=== PATIENT | female | born 1995 | race American Indian/Alaskan Native ===

== ENCOUNTER 2017-05-19 23:27 | Emergency (ER) | payer BC ==
[2017-05-19 23:46] VITALS: BP 117/75; PULSE 62; RESP 18; TEMP 98.7; O2SAT 99
[2017-05-20] MEDS ORDERED: Tmp-Smz 800 mg-160 mg DS Tab PO STA (00:20)
--- NOTE | 2017-05-20 00:24 | ED PDOC ---
HPI: Skin/Bite Injury Time Seen by Provider: 05/19/17 23:37 Chief Complaint (Nursing): Abnormal Skin Integrity Chief Complaint (Provider): Abscess History Per: Patient Additional Complaint(s): Patient is a 21 yo female, no PMH, presents to ED with complaints of red blister "bite" like leopoldo on left quad. No fever or chills. Pt has been applying A&D without relief. Past Medical History Reviewed: Nursing Documentation, Vital Signs Vital Signs: Last Vital Signs Temp 98.7 F 05/19/17 23:44 Pulse 62 05/19/17 23:44 Resp 18 05/19/17 23:44 BP 117/75 05/19/17 23:44 Pulse Ox 99 05/20/17 00:24 - Medical History PMH: Asthma (as a child) - Surgical History Surgical History: No Surg Hx - Family History Family History: States: Unknown Family Hx - Living Arrangements Living Arrangements: With Family - Social History Current smoker - smoking cessation education provided: No Alcohol: Social Drugs: Denies - Immunization History Hx Tetanus Toxoid Vaccination: No Hx Influenza Vaccination: No Hx Pneumococcal Vaccination: No - Home Medications Home Medications: Ambulatory Orders Medication Instructions Recorded Amoxicillin 875 mg PO BID #20 tab 02/05/15 Magic Mouth Wash 02/05/15 Clindamycin [Cleocin] 300 mg PO TID #21 cap 04/30/15 Cephalexin [Keflex] 500 mg PO BID #14 cap 12/17/15 Fluconazole [Diflucan] 150 mg PO ONCE #1 tab 12/17/15 Cephalexin [cephalexin] 500 mg PO BID #14 cap 05/20/17 Mupirocin 2% Cream [Bactroban 30 applic TOP BID #1 tube 05/20/17 Cream] Sulfamethoxazole/Trimethoprim 1 tab PO BID 5 Days tab 05/20/17 [Bactrim DS 800 mg-160 mg] - Allergies Allergies/Adverse Reactions: Allergies Allergy/AdvReac Type Severity Reaction Status Date / Time shellfish derived Allergy RASH Verified 10/10/16 00:57 Review of Systems ROS Statement: Except As Marked, All Systems Reviewed And Found Negative Skin: Positive for: Rash Physical Exam - Reviewed Nursing Documentation Reviewed: Yes Vital Signs Reviewed: Yes - Physical Exam Appears: Positive for: Well, Non-toxic, No Acute Distress Head Exam: Positive for: ATRAUMATIC, NORMAL INSPECTION, NORMOCEPHALIC Skin: Positive for: Normal Color, Warm, DRY Eye Exam: Positive for: EOMI, Normal appearance, PERRL ENT: Positive for: Normal ENT Inspection Neck: Positive for: Normal, Painless ROM Cardiovascular/Chest: Positive for: Regular Rate, Rhythm Respiratory: Positive for: CNT, Normal Breath Sounds Gastrointestinal/Abdominal: Positive for: Normal Exam, Bowel Sounds, Soft Back: Positive for: Normal Inspection Extremity: Positive for: Normal ROM, Other (left posterior thigh: 3 cm area or erythema with centralized pustules. site tender. non fluctuant, non indurated) Neurologic/Psych: Positive for: Alert, Oriented - ECG O2 Sat by Pulse Oximetry: 99 Medical Decision Making Medical Decision Making: Started on bactrim and Keflex while in Ed Advised warm compresses and to continue on medications as directed Disposition - Clinical Impression Clinical Impression: Cellulitis - Patient ED Disposition Is Patient to be Admitted: No - Disposition Disposition: Routine/Home Disposition Time: 01:11 Condition: STABLE Prescriptions: Cephalexin [cephalexin] 500 mg PO BID #14 cap Mupirocin 2% Cream [Bactroban Cream] 30 applic TOP BID #1 tube Sulfamethoxazole/Trimethoprim [Bactrim DS 800 mg-160 mg] 1 tab PO BID 5 Days tab Instructions: Cellulitis (ED) Forms: [id number] (Portuguese)
[2017-05-20] MEDS ORDERED: Tmp-Smz 800 mg-160 mg DS Tab ONE (00:45)
== END 2017-05-20 01:05 | disposition home or self-care (01) ==
LOC: H.ER 23:27
DX: L03.116 Cellulitis of left lower limb (principal); L02.211 Cutaneous abscess of abdominal wall; Z91.013 Allergy to seafood; J45.909 Unspecified asthma, uncomplicated

== ENCOUNTER 2017-11-16 07:46 | Emergency (ER) | payer BC ==
[2017-11-16] MEDS ORDERED: Sodium Chloride 0.9% 1,000 ML IV STA (07:53)
--- NOTE | 2017-11-16 07:58 | ED PDOC ---
HPI: SOB/CHF/COPD Time Seen by Provider: 11/16/17 07:49 Chief Complaint (Provider): Shortness of breath History Per: Patient History/Exam Limitations: no limitations Onset/Duration Of Symptoms: Hrs (this morning) Current Symptoms Are (Timing): Still Present Associated Symptoms: Other (vomiting, anxiety). denies: Chest Pain, Productive Cough Additional Complaint(s): Ramón Mukherjee is a 22 year old female, with no significant past medical history , who was brought to the emergency department via EMS complaining of shortness of breath onset since this morning. Patient admits to ETOH consumption last night associated with vomiting this morning. Patient reports she feels anxious but denies any fever, chills, cough or chest pain. No further medical complaints. PMD: None provided. Past Medical History Reviewed: Historical Data, Nursing Documentation, Vital Signs Vital Signs: Last Vital Signs Temp 97 F L 11/16/17 07:59 Pulse 78 11/16/17 07:59 Resp BP 121/70 11/16/17 07:59 Pulse Ox 100 11/16/17 07:59 - Medical History PMH: Asthma (as a child) - Surgical History Surgical History: No Surg Hx - Family History Family History: States: Unknown Family Hx - Immunization History Hx Tetanus Toxoid Vaccination: No Hx Influenza Vaccination: No Hx Pneumococcal Vaccination: No - Home Medications Home Medications: Ambulatory Orders Medication Instructions Recorded Amoxicillin 875 mg PO BID #20 tab 02/05/15 Magic Mouth Wash 02/05/15 Clindamycin [Cleocin] 300 mg PO TID #21 cap 04/30/15 Cephalexin [Keflex] 500 mg PO BID #14 cap 12/17/15 Fluconazole [Diflucan] 150 mg PO ONCE #1 tab 12/17/15 Cephalexin [cephalexin] 500 mg PO BID #14 cap 05/20/17 Mupirocin 2% Cream [Bactroban 30 applic TOP BID #1 tube 05/20/17 Cream] Sulfamethoxazole/Trimethoprim 1 tab PO BID 5 Days tab 05/20/17 [Bactrim DS 800 mg-160 mg] - Allergies Allergies/Adverse Reactions: Allergies Allergy/AdvReac Type Severity Reaction Status Date / Time shellfish derived Allergy RASH Verified 11/16/17 07:57 Review of Systems ROS Statement: Except As Marked, All Systems Reviewed And Found Negative Constitutional: Negative for: Fever, Chills Cardiovascular: Negative for: Chest Pain Respiratory: Positive for: Shortness of Breath. Negative for: Cough Gastrointestinal: Positive for: Vomiting Psych: Positive for: Anxiety Physical Exam - Reviewed Nursing Documentation Reviewed: Yes Vital Signs Reviewed: Yes - Physical Exam Appears: Positive for: Well, Non-toxic, No Acute Distress Head Exam: Positive for: ATRAUMATIC, NORMAL INSPECTION, NORMOCEPHALIC Skin: Positive for: Normal Color, Warm, Dry Eye Exam: Positive for: Normal appearance, EOMI, PERRL Neck: Positive for: Painless ROM Cardiovascular/Chest: Positive for: Regular Rate, Rhythm. Negative for: Murmur Respiratory: Positive for: Normal Breath Sounds. Negative for: Respiratory Distress Gastrointestinal/Abdominal: Positive for: Normal Exam, Soft. Negative for: Tenderness Extremity: Positive for: Normal ROM (full on all extremities). Negative for: Tenderness, Deformity, Swelling Neurologic/Psych: Positive for: Alert, Oriented. Negative for: Motor/Sensory Deficits - Laboratory Results Result Diagrams: 11/16/17 08:15 11/16/17 08:15 Medical Decision Making Medical Decision Making: Initial Plan: --Alcohol serum --CMP --CBC w/ differential --Sodium Chloride 1,000 ml IV 100 mls/hr --Zofran ODT 4 mg PO --Reevaluation Scribe Attestation: Documented by Cruz Singh, acting as a scribe for Crow Avalos MD Provider Scribe Attestation: All medical record entries made by the Scribe were at my direction and personally dictated by me. I have reviewed the chart and agree that the record accurately reflects my personal performance of the history, physical exam, medical decision making, and the department course for this patient. I have also personally directed, reviewed, and agree with the discharge instructions and disposition. Disposition - Clinical Impression Clinical Impression: Anxiety - Patient ED Disposition Is Patient to be Admitted: No Counseled Patient/Family Regarding: Studies Performed, Diagnosis, Need For Followup - Disposition Referrals: [facility] [Outside] Disposition: Routine/Home Disposition Time: 10:45 Condition: FAIR Instructions: Anxiety, Adult (DC)
[2017-11-16 07:59] VITALS: TEMP 97; O2SAT 100
[2017-11-16 08:35] LABS: BASO % 0.6 % (0.0-2.0); EOS % 1.4 % (0.0-4.0); HEMOGLOBIN 12.4 g/dL (12.0-16.0); LYMPH # 1.4 K/uL (1.0-4.3); LYMPH % 40.9 % (20.0-40.0); MEAN CELL VOLUME 95.3 fl (81.0-99.0); MEAN CORPUSCULAR HEMOGLOBIN 33.4 pg (27.0-31.0); MEAN PLATELET VOLUME 8.9 fl (7.2-11.7); MONO # 0.4 K/uL (0.0-0.8); MONO % 11.7 % (0.0-10.0); NEUT # 1.6 K/uL (1.8-7.0); NEUT % 45.4 % (50.0-75.0); NRBC % 0.2 % (0.0-0.0); RBC 3.71 Mil/uL (3.80-5.20); RED CELL DISTRIBUTION WIDTH 12.7 % (11.5-14.5); WHITE BLOOD COUNT 3.5 K/uL (4.8-10.8)
[2017-11-16 09:01] LABS: ALB/GLOB RATIO 1.1 (1.0-2.1); ALBUMIN 3.8 g/dL (3.5-5.0); ALT/SGPT 32 U/L (9-52); AST/SGOT 18 U/L (14-36); BLOOD UREA NITROGEN 12 mg/dl (7-17); CALCIUM 8.8 mg/dL (8.4-10.2); GFR AFRICAN-AMERICAN > 60; GFR NON-AFRICAN AMERICAN > 60
[2017-11-16 09:10] LABS: BARBITURATES, UR NEGATIVE (NEGATIVE); BENZODIAZEPINES, UR NEGATIVE (NEGATIVE); OPIATES, UR NEGATIVE (NEGATIVE); PHENCYCLIDINE, UR NEGATIVE (NEGATIVE)
[2017-11-16 11:36] VITALS: BP 116/69; PULSE 73; RESP 18
== END 2017-11-16 11:34 | disposition home or self-care (01) ==
LOC: H.ER 07:46
DX: F41.9 Anxiety disorder, unspecified (principal); R11.10 Vomiting, unspecified
CPT/HCPCS: 80053; 85025; 99283; G0480; J7040

== ENCOUNTER 2018-07-14 12:30 | Emergency (ER) | payer BC ==
--- NOTE | 2018-07-14 19:08 | OBHP ---
Datetime: 07/14/2018 13:01 IP Adm Impression: , intrauterine IP Admit Plan: Observation/Evaluation; Discharge home Admit Comment, IP Provider: 23 y/o , 30.3 weeks based on LMP with LUDWIN of 09/19/17 presents to [facility] with decreased movements. Patient feels movements normally 3-4 times a day but from sin ce she reports less pronounced FM approx 2 times, at 5-6 hours interval. Reports mild pelvic pressure. Denies any vaginal bleeding, discharge or LOF. Reports H/O cold 2 weeks ago but has recove red well. Last sexual activuty 3 days ago. Denies any fever, chills, nausea, vomting, diarrhea, cosnt ipation or dysuria. Tolerates regular diet well. Pranatal Course: Unremarkable so far. Follows up with Dr. Hicks. Last visit 1 week ago, US tejeda e was WNL as per patient. PMHx: Denies PSH: Denies Allergies: NKDA Medications: PNVs Social: Denies alcohol/tobacco/drugs PE: Gen: Well,pleasent, NAD Heart: S1S2 present, RRR, no m/r/g Lungs: CTAB Abdomen: Soft, ND, gravid, No tenderness Ext: No pedal edema, Pulse +2 B/L LE, No calf tenderness A/P: 23 y/o , 30.3 weeks based on LMP with LUDWIN of 09/19/17 presents to [facility] with decreased feta l movements. - EFM and [place] monitoring - NST reactive, catagory 1 tracing w/o any decelerations. - Patient monitored for 1 hr with reassuring NST. - Patient to be discharge home with labor precautions provided - F/U for on 07/26/[address] Hicks on 08/02/17. - Patient given opportunity to ask questions. All questions answered. Case discussed with attening. Abran Reilly, PGY1 Attending Note: Patient was seen and discussed with the resident and I agree with the above. Pelvic Type - PN: Not Done Extremities - PN: Normal Abdomen - PN: Normal Back - PN: Normal Breast - PN: Not Done Lungs - PN: Normal Heart - PN: Normal Thyroid - PN: Not Done Neurologic - PN: Normal HEENT - PN: Normal General - PN: Normal FHR - Baseline A Provider: 120 Contraction Comments Provider: None Comments, ACOG Physical Exam: PE: Gen: Well,pleasent, NAD Heart: S1S2 present, RRR, no m/r/g Lungs: CTAB Abdomen: Soft, ND, gravid, No tenderness Ext: No pedal edema, Pulse +2 B/L LE, No calf tenderness EGA AdmitDate IP: 30.3 Vital Signs Provider: Reviewed; Within Normal Limits IP Chief Complaint: Decreased movement NICHD Variability Prov Fetus A: Moderate 6-25bpm NICHD Accel Fetus A IP Provider: [id number] FHR Category Provider Fetus A: Category I NICHD Decel Fetus A IP Provider: None Genitourinary Exam: Not Done DTRs - PN: Not Done
[2018-07-14 19:21] VITALS: BP 115/69; PULSE 82; RESP 18; TEMP 98
== END 2018-07-14 14:02 | disposition home or self-care (01) ==
LOC: H.EROB2 12:30
DX: O36.8130 Decreased fetal movements, third trimester, not applicable or unspecified (principal); Z3A.30 30 weeks gestation of pregnancy